=== PATIENT | female | born 2000 | race Caucasian/White ===

== ENCOUNTER 2021-04-19 10:03 | Emergency (ER) | payer OTHER, SELFPAY ==
[2021-04-19 10:14] VITALS: BP 139/93; PULSE 73; RESP 16; TEMP 37.3; O2SAT 99
--- NOTE | 2021-04-19 10:35 | ED.NAVMDI ---
HPI - Nausea/Vomiting/Diarrhea General Chief complaint: Nausea/Vomiting/Diarrhea Stated complaint: Stomach Pain Time Seen by Provider: 04/19/21 10:35 Source: patient, RN notes reviewed and old records reviewed Mode of arrival: ambulatory Limitations: no limitations History of Present Illness HPI Narrative: 21 year old female who presents to [facility] care with complaints of abdominal pain since yesterday morning. Patient states that pain has increased to her abdomen since last night with diarrhea starting. This morning she has also had nausea and vomiting Patient has tenderness on palpation to right lower quadrant rating pain 8/10 when palpated. Patient denies any known fevers, chills or sweats, denies any burning with urination, frequency of urination or any CVA tenderness. MD elicited complaint: nausea, vomiting, diarrhea and abdominal pain (generalized cramping) Related Data Home Medications Medication Instructions Recorded Confirmed norethindrone-e.estradiol-iron tablet 04/19/21 04/19/21 [09/24 (28)] Allergies Allergy/AdvReac Type Severity Reaction Status Date / Time Penicillins Allergy Unknown Verified 04/19/21 11:24 Review of Systems Review of Systems: CONSTITUTIONAL: Denies fever, chills, or sweats. EYES: Denies visual changes, redness, or discharge. ENT: Denies rhinorrhea, congestion, sore throat, or otalgia. CARDIOVASCULAR: Denies chest pain, palpitations, or edema. RESPIRATORY: Denies cough or dyspnea. GASTROINTESTINAL: Positive abdominal pain, nausea, vomiting, or diarrhea. GENITOURINARY: Denies dysuria or hematuria. SKIN: Denies rash or itching. MUSCULOSKELETAL: Denies back pain, joint pain, or myalgia. NEUROLOGIC: Denies headache, numbness, or weakness. PSYCHIATRIC: Denies anxiety or depression. All systems reviewed & are unremarkable except as noted in HPI and below PMFSH Past Medical History Medical History (Updated 04/20/21 @ 20:00 by Tegan Park NP) Acute right lower quadrant pain Appendicolith (~04/19/21) No pertinent past medical history Surgical History Surgical History H/O knee surgery LEFT 3-4 years ago ligament repair Family History Family History Grandparent Lung cancer Mother Diabetes mellitus Cervical cancer Sibling Diabetes mellitus Social History Social History Smoking status: Never smoker Alcohol intake: never Substance use: never Gender identity (if verbalized by the patient): Female Comments At time of signature, agree with nursing past medical, surgical, social and family history. There is no relevant family history pertinent to the presenting complaint Exam Narrative: GENERAL: Well-appearing, well-nourished, and in no acute distress. HEAD: Normocephalic, atraumatic. EYES: PERRLA and EOMI. ENT: Nares clear, no rhinorrhea or epistaxis. Mucous membranes moist. NECK: Supple.no lymphadenopathy CHEST: Clear to auscultation. No respiratory distress.SAO2 99% on room air HEART: Regular rate and rhythm. No murmur heard. Normal peripheral pulses. ABDOMEN: Soft,tender general lower abdomen with increase pain on palpation to right lower quadrant, nondistended, normal active bowel sounds.No CVA tenderness EXTREMITIES: Normal range of motion. No edema. SKIN: Warm, dry, no rash. NEURO: No focal deficits. Alert and oriented x3. Course Vital Signs Vital signs: Vital Signs Temperature 37.3 C 04/19/21 10:14 Pulse Rate 73 04/19/21 10:14 Respiratory Rate 16 04/19/21 10:14 Blood Pressure 139/93 H 04/19/21 10:14 Pulse Oximetry 99 04/19/21 10:14 Temperature 37.3 C 04/19/21 10:14 Pulse Rate 73 04/19/21 10:14 Respiratory Rate 16 04/19/21 10:14 Blood Pressure 139/93 H 04/19/21 10:14 Pulse Oximetry 99 04/19/21 10:14 Transfer Transfered to: [facility]
== END 2021-04-19 10:58 | disposition short-term general hospital (02) ==
PROVIDERS: Emergency Provider Registered Nurse
DX: R11.2 Nausea with vomiting, unspecified (principal); R19.7 Diarrhea, unspecified; R10.31 Right lower quadrant pain
CPT/HCPCS: 81003; 99212; G0463

== ENCOUNTER 2021-04-19 11:14 | Observation (INO) | payer OTHER, SELFPAY ==
--- NOTE | ~2021-04-19 | CT_ITS ---
EXAMINATION: CT abdomen pelvis w con DATE: 04/19/2021 15:52 INDICATION: Abdominal pain, nausea, vomiting and diarrhea. TECHNIQUE: Computed tomography (CT) of the abdomen and pelvis was performed with 100 mL Omnipaque-350 intravenous contrast. Automated exposure control and iterative reconstruction technique were employe d. The dose-length product was 1298.73 mGy-cm. COMPARISON: None FINDINGS: Lung bases are clear. Heart size is normal. No pericardial or pleural effusion. Liver, gallbladder, s pleen, pancreas, bilateral adrenal glands and kidneys are normal. Dilated fluid-filled appendix measu ring up to 11 mm in diameter distal to a couple calcified appendicoliths. This raises suspicion for a cute appendicitis although there is no significant surrounding inflammatory stranding to more specifi thierry suggest this. Bowels are otherwise unremarkable. Bladder, uterus and bilateral adnexa are unrem arkable. No free intraperitoneal gas or fluid. No pathologically enlarged abdominal or pelvic lymphad enopathy. IMPRESSION: 1. Dilated fluid-filled appendix distal to a couple appendicoliths but without appreciable surroundin g inflammatory stranding which is suspicious but indeterminate for early acute appendicitis. Dr. Carmen funez discussed these findings with Dr. Mckeon at 4:20 PM. Reviewed, dictated and finalized at location A. IMPRESSION: 1. Dilated fluid-filled appendix distal to a couple appendicoliths but without appreciable surrounding inflammatory stranding which is suspicious but indeterm inate for early acute appendicitis. Dr. Parker discussed these findings with Dr. Mckeon at 4:20 PM.
[2021-04-19 11:21] VITALS: BP 142/103; PULSE 74; RESP 17; TEMP 36.6; O2SAT 100
[2021-04-19 11:33] LABS: Basophils Percent Auto 0.3 % (0.2-1.2); Eosinophils Percent Auto 0.1 % (0-4.4); Hematocrit 42.9 % (37.0-47.0); Hemoglobin 14.6 g/dL (12.0-15.0); Immature Granulocyte Absolute 0.07 K/mm3 (0.00-0.031); Immature Granulocyte Percent A 0.5 % (0-0.5); Lymphocytes Absolute Auto 1.09 K/mm3 (0.9-3.2); Lymphocytes Percent Auto 7.9 % (18.3-44.2); Mean Corpuscular Hemoglobin 31.3 pg (26-34); Mean Corpuscular Volume 91.9 fl (80-100); Mean Platelet Volume 9.8 fl (7.4-10.4); Monocytes Absolute Auto 0.5 K/mm3 (0.1-0.6); Monocytes Percent Auto 3.9 % (2.6-8.5); Neutrophils Percent Auto 87.3 % (45.5-73.1); Platelet Count Result 264 k/mm3 (150-375); Red Blood Count 4.67 M/mm3 (4.2-5.4); Red Cell Distribution Width 12.3 % (11.5-14.5); White Blood Count 13.7 K/mm3 (4.5-10.0)
[2021-04-19 11:56] LABS: Add Urine Microscopic? YES; Appearance Urine Clear (Clear); Bilirubin Urine Negative (Negative); Blood Urine Negative (Negative); Color Urine Yellow (Yellow); Glucose Urine UA Negative (Negative); Ketones Urine 1+ mg/dL (Negative); Leukocyte Esterase Ur Trace LEU/UL (Negative); Mucus Urine Rare /lpf; Nitrate Urine Negative (Negative); Protein Urine Negative (Negative); RBC Urine 0-2 /hpf (0-2); Specific Grav Ur 1.024 (1.001-1.035); Squamous Epithelial Cell Urine Rare /hpf (Few); Urobilinogen Urine Negative mg/dL (<2.0); WBC Urine 0-3 /hpf
[2021-04-19 12:02] LABS: Alanine Aminotransferase 23 U/L (4-35); Albumin Level 4.6 g/dL (3.5-5.1); Alkaline Phosphatase 70 U/L (38-126); Anion Gap 5 mmol/L (8-16); Aspartate Amino Transferase 34 U/L (14-36); Bilirubin,Total 0.4 mg/dL (0.2-1.3); Blood Urea Nitrogen 9 mg/dL (7-17); Calcium 9.5 mg/dL (8.4-10.2); Carbon Dioxide 24 mmol/L (22-30); Chloride 105 mmol/L (98-107); Estimated CRCL calculation 141 ml/min; Estimated Glomerular Filt Rate > 60; Glucose 112 mg/dL (65-110); Lipase 69 U/L (23-300); Potassium 3.7 mmol/L (3.4-5.0); Sodium 134 mmol/L (137-145)
--- NOTE | 2021-04-19 15:50 | ED.ABDPAIN ---
HPI - Abdominal Pain General Chief Complaint: Abdominal Pain Stated Complaint: abdominal pain n/v/d Time Seen by Provider: 04/19/21 13:18 Source: patient Mode of arrival: ambulatory Limitations: no limitations History of Present Illness HPI narrative: Patient presents for evaluation of right-sided abdominal pain. Symptom onset yesterday. She had some relief in her symptoms last night but pain returned today. Pain is now constant, cramping, 6 out of 10 at rest, 8 out of 10 with movement. Experiencing nausea and dry heaving. She denies any fever, chills, urinary symptoms, vaginal bleeding or discharge. Compliant with oral contraception. Last period 2 to 3 weeks ago. No history of abdominal surgeries. No recent antibiotics. No recent travel. No new foods. No recent sick contacts. Received J&J COVID vaccine in the past. Typically she has a bowel movement once every 3 days. She has had multiple episodes of diarrhea since yesterday, without the presence of blood or mucous in the stool. She was seen in urgent care earlier today and was sent here for further evaluation. Related Data Home Medications Medication Instructions Recorded Confirmed norethindrone-e.estradiol-iron tablet 04/19/21 04/19/21 [09/24 (28)] Allergies Allergy/AdvReac Type Severity Reaction Status Date / Time Penicillins Allergy Unknown Verified 04/19/21 11:24 Review of Systems Review of Systems: CONSTITUTIONAL: Denies fever, chills, or sweats. EYES: Denies visual changes, redness, or discharge. ENT: Denies rhinorrhea, congestion, sore throat, or otalgia. CARDIOVASCULAR: Denies chest pain, palpitations, or edema. RESPIRATORY: Denies cough or dyspnea. GASTROINTESTINAL: Reports abdominal pain and nausea. Reports diarrhea. Denies vomiting. GENITOURINARY: Denies dysuria or hematuria. SKIN: Denies rash or itching. MUSCULOSKELETAL: Denies back pain, joint pain, or myalgia. NEUROLOGIC: Denies headache, numbness, dizziness, or weakness. PSYCHIATRIC: Denies anxiety or depression. [facility] Past Medical History Medical History No pertinent past medical history Surgical History Surgical History H/O knee surgery LEFT 3-4 years ago ligament repair Family History Family History Grandparent Lung cancer Mother Diabetes mellitus Cervical cancer Sibling Diabetes mellitus Social History Social History Smoking status: Never smoker Alcohol intake: never Substance use: never Gender identity (if verbalized by the patient): Female Exam Narrative: GENERAL: Well-appearing, well-nourished, and in no acute distress. HEAD: Normocephalic, atraumatic. EYES: PERRLA and EOMI. ENT: Nares clear, no rhinorrhea or epistaxis. Mucous membranes moist. Oropharynx without tonsillar hypertrophy exudate or other lesions. Bilateral TMs pearly banegas nonbulging NECK: Supple. No adenopathy or masses. No carotid bruits or JVD CHEST: Clear to auscultation. No respiratory distress. No wheezes rales or rhonchi HEART: Regular rate and rhythm. No murmur heard. Normal peripheral pulses. ABDOMEN: Soft, diffuse tenderness, most prominent in the left lower quadrant, suprapubic region, right lower quadrant and right upper quadrant. There is no rebound present EXTREMITIES: Normal range of motion. No edema. SKIN: Warm, dry, no rash. NEURO: No focal deficits. Alert and oriented x3. PSYCH: Normal mood and affect. Course Course Emergency Course: This is a 21-year-old female who presented with complaints of abdominal pain. CT abdomen pelvis showed dilated fluid-filled appendix distal to a couple appendicoliths without appreciable surrounding inflammation. Mild leukocytosis. Questionable early appendicitis. I discussed all releva
[2021-04-19] MEDS: SODIUM CHLORIDE 0.9% IV 1,000 ML 999 ML IV CONT (16:02)
[2021-04-19] MEDS: ONDANSETRON INJ 4 MG/2 ML VIAL IV PUSH ×2 (16:02→20:42)
[2021-04-19] MEDS: MORPHINE SULFATE (*CRX) 2 MG/ML INJ IV PUSH ×2 (16:03→20:42)
[2021-04-19 16:04] VITALS: BP 138/88; PULSE 80; RESP 20; O2SAT 99
[2021-04-19 16:59] LABS: Lactic Acid Reflex 1.3 mmol/L (0.7-2.1)
--- NOTE | 2021-04-19 18:14 | PM.IMHP ---
H&P: HPI History of Present Illness Date/Time: 04/19/21 18:14 Chief Complaint: Abdominal pain Narrative: Patient is a 21 y/o W female who presents for evaluation of right-sided abdominal pain. Symptom onset yesterday. She had some relief in her symptoms last night but pain returned today. patient ate normally yesterday eating some chicken care its another vegetable that she cooked at 6:00 p.m. last evening. She states that she then went to bed feeling fine but when she awoke this morning she continued to have her had recurrence of the mid abdominal pain. She has any new anything since she has drink some liquids and she has had several loose stools 1 in the evening Tuesday to today. No blood in the stool. Pain today is constant, cramping, 6 out of 10 at rest. Experiencing nausea and dry heaving Earlier today. She denies any fever, chills, urinary symptoms, vaginal bleeding or discharge, however, she admits she could find her thermometer and never took her temperature at home. She was afebrile here at the ED. Compliant with oral contraception. Last period 2 to 3 weeks ago. No history of abdominal surgeries. No recent antibiotics. No recent travel. No new foods. No recent sick contacts. Received J&J COVID vaccine in the past. Typically she has a bowel movement once every 3 days. She has had multiple episodes of diarrhea since yesterday, without the presence of blood or mucous in the stool. She was seen in urgent care earlier today and was sent to the [facility] for further evaluation. workup here at the [facility] ED reveals afebrile white count slightly elevated at 13,000 thousand with the rest the labs being fairly normal. Urinalysis was normal. CT scan of the abdomen pelvis showed equal signs of possible early appendicitis with 2 appendicoliths noted in the appendix without surrounding inflammation the rudolph-appendiceal fat. (See report ). I was called noon to suggest further care. Review of Systems Constitutional: Constitutional: Reports as per HPI and Denies headache(s) Eyes: Eyes: Denies loss of vision and Denies eye pain ENT: Reports Normal hearing present, Denies change in voice, Denies dizziness and Denies headache(s) Cardiovascular: Cardiovascular: Denies chest pain and Denies dyspnea Respiratory: Respiratory: Denies dyspnea and Denies wheezing Gastrointestinal: Gastrointestinal: Reports abdominal pain Musculoskeletal: Musculoskeletal: Denies back pain and Denies arthralgias Neurologic: Reports Normal hearing present, Denies dizziness, Denies headache(s), Denies loss of vision and Denies memory loss Psychiatric: Psychiatric: Denies memory loss and Denies panic attacks Endocrine: Endocrine: Reports no additional endocrine complaints Hematologic/Lymphatic: Hematologic/Lymphatic: Reports no additional hematologic/lymphatic complaints Allergic/Immunologic: Allergic/Immunologic: Denies wheezing PMFSH Past Medical History Medical History No pertinent past medical history Surgical History Surgical History H/O knee surgery LEFT 3-4 years ago ligament repair Family History Family History Grandparent Lung cancer Mother Diabetes mellitus Cervical cancer Sibling Diabetes mellitus Social History Social History Smoking status: Never smoker Alcohol intake: never Substance use: never Gender identity (if verbalized by the patient): Female Meds Home Medications and Allergies Home Medications Medication Instructions Recorded Confirmed Type norethindrone-e.estradiol-iron tablet 04/19/21 04/19/21 History [09/24 ()] Allergies Allergy/AdvReac Type Severity Reaction Status Date / Time Penicillins Allergy Unknown Verified 04/19/21 11:24
[2021-04-19 18:32] VITALS: BP 147/84; PULSE 87; RESP 20; O2SAT 100
--- NOTE | 2021-04-19 19:14 | PC.NURSE ---
Report received from NICHELLE Colby. Assumed care of patient at this time.
--- NOTE | 2021-04-19 19:16 | PC.NURSE ---
in room to see patient.
[2021-04-19 20:34] VITALS: BP 153/89; PULSE 96; RESP 18; TEMP 38.2; O2SAT 100
[2021-04-19] MEDS: SODIUM CHLORIDE 0.9% IV 1,000 ML 100 ML IV CONT (20:42)
--- NOTE | 2021-04-19 20:47 | PC.NURSE ---
ERP notified of patient's fever, informed to contact for orders.
--- NOTE | 2021-04-19 21:30 | PC.NURSE ---
Spoke with in regards to patient. He stated to give the tylenol for the fever. He stated to keep him informed of patient's condition or any changes.
[2021-04-19] MEDS: ACETAMINOPHEN 325 MG TABLET 650 MG PO (21:39)
[2021-04-19 22:02] VITALS: TEMP 37.9
[2021-04-19 23:50] VITALS: BP 139/91; PULSE 104; RESP 18; TEMP 37.3; O2SAT 99
[2021-04-20] VITALS (14 sets, daily range): BP systolic 99–144; BP diastolic 56–92; PULSE 88–114; RESP 12–20; TEMP 36.8–38.6; O2SAT 98–100
[2021-04-20] MEDS: MORPHINE SULFATE (*CRX) 2 MG/ML INJ IV PUSH ×3 (03:02→15:01)
[2021-04-20 06:17] LABS: Basophils Percent Auto 0.2 % (0.2-1.2); Eosinophils Percent Auto 0.1 % (0-4.4); Hemoglobin 13.7 g/dL (12.0-15.0); Immature Granulocyte Absolute 0.07 K/mm3 (0.00-0.031); Immature Granulocyte Percent A 0.4 % (0-0.5); Lymphocytes Absolute Auto 0.88 K/mm3 (0.9-3.2); Lymphocytes Percent Auto 5.3 % (18.3-44.2); Mean Corpuscular HGB Conc 33.4 g/dl (32-36); Mean Corpuscular Hemoglobin 31.2 pg (26-34); Mean Corpuscular Volume 93.4 fl (80-100); Mean Platelet Volume 9.8 fl (7.4-10.4); Monocytes Absolute Auto 0.7 K/mm3 (0.1-0.6); Neutrophils Absolute Auto 14.9 K/mm3 (1.3-6.7); Platelet Count Result 215 k/mm3 (150-375); Red Blood Count 4.39 M/mm3 (4.2-5.4); Red Cell Distribution Width 12.1 % (11.5-14.5); White Blood Count 16.6 K/mm3 (4.5-10.0)
[2021-04-20 06:38] LABS: Anion Gap 2 mmol/L (8-16); Blood Urea Nitrogen 6 mg/dL (7-17); Calcium 8.9 mg/dL (8.4-10.2); Carbon Dioxide 27 mmol/L (22-30); Chloride 103 mmol/L (98-107); Estimated CRCL calculation 126 ml/min; Estimated Glomerular Filt Rate > 60; Glucose 116 mg/dL (65-110); Magnesium 1.6 mg/dL (1.6-2.3); Potassium 4.3 mmol/L (3.4-5.0); Sodium 132 mmol/L (137-145)
[2021-04-20] MEDS: SODIUM CHLORIDE 0.9% IV 1,000 ML 100 ML IV CONT (06:52)
[2021-04-20] MEDS: ACETAMINOPHEN 325 MG TABLET 650 MG PO (07:06)
[2021-04-20] MEDS: ENOXAPARIN 40 MG/0.4 ML SYRINGE SUB-Q (10:25)
--- NOTE | 2021-04-20 11:44 | WPDHPUPDATE1 ---
History and Physical Update Update Date/Time: 04/20/21 11:44 History and Physical has been reviewed, including an updated exam of the patient. There are changes in the patient's condition. The pt continues to have RLQ pain overnight and had a fever. She also had the WBC go up to 16,000. Risks, benefits, and alternatives of a laparoscopic appendectomy, possible open appendectomy have been discussed and questions answered. Patient agrees to proceed with procedure.
[2021-04-20] MEDS: LACTATED RINGERS 1,000 ML 30 ML IV CONT ×2 (12:30→17:35)
--- NOTE | 2021-04-20 14:03 | SUR.PREOP ---
1340- PT STATED ABD PAIN 03/14. CALLED DR. BROWN AND HE STATED TO GIVE MORPHINE 2 MG IVP EVERY 5 MINS NEEDED. MAX DOSE 10 MG. 1346- MORPHINE 2 MG IVP GIVEN 1355- PT STATED PAIN TOLERABLE AT THIS TIME, RESTING IN STRETCHER
--- NOTE | 2021-04-20 15:25 | WPDANESEPPF ---
Anes - Initial Pre Proc Eval Procedure: Operation Date: 04/20/21 13:00 Proposed Procedures p Laparoscopic Appendectomy,Possible Open - Og Robles MD Date/Time: 04/20/21 15:25 Surgeon: Og Robles MD Pre Op Diagnosis: abdominal pain Patient Data Age: 21 Gender: F Height: 1.83 m Weight: 125 kg Last Vital Signs Temp 36.9 C 04/20/21 12:23 Pulse 94 04/20/21 12:23 Resp 12 04/20/21 11:08 BP 140/82 04/20/21 12:23 Pulse Ox 99 04/20/21 12:23 Allergies Allergy/AdvReac Type Severity Reaction Status Date / Time Penicillins Allergy Unknown Verified 04/19/21 11:24 Home Medications Medication Instructions Recorded Confirmed Type norethindrone-e.estradiol-iron tablet 04/19/21 04/19/21 History [09/24 (28)] Laboratory Tests 04/19/21 04/20/21 04/20/21 16:38 06:09 06:09 WBC 16.6 K/mm3 H K/mm3 (4.5-10.0) RBC 4.39 M/mm3 M/mm3 (4.2-5.4) Hgb 13.7 g/dL g/dL (12.0-15.0) Hct 41.0 % % (37.0-47.0) MCV 93.4 fl fl (80-100) MCH 31.2 pg pg (26-34) MCHC 33.4 g/dl g/dl (32-36) RDW 12.1 % % (11.5-14.5) Plt Count 215 k/mm3 k/mm3 (150-375) MPV 9.8 fl fl (7.4-10.4) Immature Gran % (Auto) 0.4 % % (0-0.5) Neut % (Auto) 90.0 % H % (45.5-73.1) Lymph % (Auto) 5.3 % L % (18.3-44.2) [place] % (Auto) 4.0 % % (2.6-8.5) Eos % (Auto) 0.1 % % (0-4.4) Baso % (Auto) 0.2 % % (0.2-1.2) Lymph # (Auto) 0.88 K/mm3 L K/mm3 (0.9-3.2) [place] # (Auto) 0.7 K/mm3 H K/mm3 (0.1-0.6) Eos # (Auto) 0.0 K/mm3 K/mm3 (0-0.3) Baso # (Auto) 0.0 K/mm3 K/mm3 (0.0-0.1) Abs Immat Gran (auto) 0.07 K/mm3 H K/mm3 (0.00-0.031) Absolute Neuts (auto) 14.9 K/mm3 H K/mm3 (1.3-6.7) Absolute Nucleated RBC 0.0 K/mm3 K/mm3 (0.0-0.012) Nucleated RBC % 0.0 % % (0.0-0.2) Sodium 132 mmol/L L mmol/L (137-145) Potassium 4.3 mmol/L mmol/L (3.4-5.0) Chloride 103 mmol/L mmol/L (98-107) Carbon Dioxide 27 mmol/L mmol/L (22-30) Anion Gap 2 mmol/L L mmol/L (8-16) BUN 6 mg/dL L mg/dL (7-17) Creatinine 0.90 mg/dL mg/dL (0.7-1.0) Estim Creat Clear Calc 126 ml/min ml/min Estimated GFR > 60 (59 - ) Glucose 116 mg/dL H mg/dL (65-110) Lactic Acid 1.3 mmol/L mmol/L (0.7-2.1) Calcium 8.9 mg/dL mg/dL (8.4-10.2) Magnesium 1.6 mg/dL mg/dL (1.6-2.3) Patient hx anesthesia problems: none Family hx anesthesia problems: none [facility] Past Medical History Medical History (Updated 04/20/21 @ 15:26 by James Alanis MD) Acute right lower quadrant pain Appendicolith (~04/19/21) No pertinent past medical history Surgical History Surgical History H/O knee surgery LEFT 3-4 years ago ligament repair Family History Family History Grandparent Lung cancer Mother Diabetes mellitus Cervical cancer Sibling Diabetes mellitus Social History Social History Smoking status: Never smoker Alcohol intake: never Substance use: never Gender identity (if verbalized by the patient): Female Anes - Eval Final PreProcedure Day of Procedure 04/20/21 15:25 Patient weight: obese Heart: regular rate and rhythm Lungs: clear to auscultation and normal air movement Airway: Mallampati scale class II Neurological: alert and oriented Last oral intake: >/= 8 hours ASA classification: II Emergent: no Anesthetic plan: proceed Anesthesia type and monitoring: general ETT Informed Consent: The patient's anesthetic plan and its attendant risks and benefits were discussed wi
[2021-04-20] MEDS: SCOPOLAMINE 1.5 MG PATCH TRANSDERM (15:42)
[2021-04-20] MEDS: BUPIVACAINE/EPINEPHRINE 0.5% 50 ML VIAL (17:22)
--- NOTE | 2021-04-20 17:36 | W.PM.PROC2 ---
Procedure Note - Detailed Date of Procedure 04/20/21 Pre-op Diagnosis 1. abdominal pain 2. Acute uncomplicated appendicitis Post-op Diagnosis same Procedure Performed laparoscopic appendectomy Surgeon Og Robles MD [employer] Junaid STEWARD. OR [employer] Rep[employer] Technician Anesthesia general Indications Patient presented last evening to the emergency room and CT scan showed equivocal appendicitis. She was observed overnight because she was in significant discomfort and repeat white count showed elevation to 16,000. The patient can not was continuing to have right lower quadrant right mid abdominal pain. Therefore, it was felt that most likely she had continuing appendicitis. She was started on antibiotics this morning and scheduled for surgery is afternoon with the supposition that she does have acute appendicitis. On CT there was no signs of perforation. Findings The appendix was curled and adhesed with inflammatory adhesions between the distal small bowel and the right lateral abdominal wall right at the pelvic brim. There was no sign of perforation. Description of Procedure The patient was seen again in the Holding Room. The risks, benefits, complications, treatment options, and expected outcomes were discussed with the patient and/or family. The possibilities of reaction to medication, pulmonary aspiration, perforation of viscus, bleeding, recurrent infection, finding a normal appendix, the need for additional procedures, failure to diagnose a condition, and creating a complication requiring transfusion or operation were discussed. There was concurrence with the proposed plan and informed consent was obtained. The site of surgery was properly noted/marked. The patient was taken to Operating Room, and a time out was preformed which identified this as the proper patient, and the procedure verified as laparoscopic appendectomy, possible open. The patient was placed in the supine position and general anesthesia was induced, along with placement of orogastric tube, SCD hose, and a Mcdonnell catheter. The abdomen was prepped and draped in a sterile fashion. A 5 mm umbilical incision was made and the peritoneal cavity was accessed using the Veress needle technique. Once the abdomen was insufflated to 14 mmHg pressure a 5 mm XL trocar over the 0? 5 mm scope was carefully twisted into the abdomen via the umbilicus. Once we had the 5 mm scope through the sleeve the trocar I could not see anything inside the abdomen. Because of this I did not feel confident that we would be able to get into the abdomen with this technique. Therefore we converted to the Hickman technique. Because of the above the Hickman cannula technique was utilized. To do this I made a transverse incision in the umbilical area, extending the above small transverse incision where we had tried the Veress needle technique, and carried this down to the midline fascia. Under direct vision the midline fascia was incised and the peritoneum entered under direct vision after placing 2 sutures of 0 Vicryl in the fascia on either side of midline. The Hickman cannula was then slid into place into the peritoneum under direct vision with some difficulty. The pneumoperitoneum was then established to steady pressure of 14 mm Hg. A 12 mm laparoscopic port was placed through a transverse suprapubic incision. An additional 5 mm cannula was then placed in the left upper quadrant of the abdomen at a level half way between the umbilicus and the left costal margin under direct vision. A careful evaluation of the entire abdomen was carried out. The right half of the uterus in the right ovary appeared normal. Because of her body habitus I was unable to see the left ovary. The patient was placed in Trendelenburg and left lateral decubitus position. The small intestines were retracted in the cephalad and left lateral direction away from the pelvis and right lower quadrant. The patient was found to have an enlarged and inflamed appendix
--- NOTE | 2021-05-14 15:29 | PM.DS ---
DS: Admitting Diagnosis Discharge Date 04/20/21 Admitting Diagnosis acute uncomplicated appendicitis DS: Discharge Diagnosis Discharge Diagnosis (1) Acute appendicitis, uncomplicated: Onset Date: ~04/18/21 Code(s): K35.80 - Unspecified acute appendicitis Status: Acute Assessment and Plan: The patient presented to the emergency room. She was worked up and CT showed suggested acute appendicitis. Patient appropriate history and physical exam for same. She subsequently underwent the following day a laparoscopic appendectomy with findings of a non perforated appendicitis. Please see the operative note for further details. Patient had unremarkable recovery and was discharged the evening of her surgery. (2) Obesity (BMI 35.0-39.9 without comorbidity): Onset Date: ~04/2021 Code(s): E66.9 - Obesity, unspecified Status: Acute Assessment and Plan: encouraged patient to lose weight DS: Summary Hospital Course Reason for hospitalization: acute uncomplicated appendicitis Hospital Course: The patient presented to the emergency room. She was worked up and CT showed suggested acute appendicitis. Patient appropriate history and physical exam for same. She subsequently underwent the following day a laparoscopic appendectomy with findings of a non perforated appendicitis. Please see the operative note for further details. The patient had unremarkable recovery and was discharged the evening of her surgery Status at Discharge Cognitive/behavioral status at discharge: normal Functional status at discharge: independent ambulation Overall status at discharge: patient is not back to baseline ( still slowed by her incisions.) Time Spent with Patient Time attestation: Total time spent providing and/or coordinating discharge services: Time spent: Less than 30 minutes Specific discharge activities: See instructions for patient under discharge plan Exam Const: General: cooperative, no acute distress, alert and awake Orientation/consciousness: patient oriented x3 HENMT: Mouth: Yes moist mucous membranes Neck: Neck: normal visual inspection Chest: Chest palpation & inspection: normal inspection of the chest Resp: Effort & Inspection: normal respiratory effort Auscultation: clear to auscultation bilaterally Cardio: Jugular venous distension: no JVD Rate: regular rate Rhythm: regular rhythm GI: Inspection: incision ( clean and dry with surgical glue in place) and obesity Auscultation: normal bowel sounds Rectal Exam: deferred Neuro: General: patient oriented x3 and moves all extremities Speech: normal speech Extrem: General: normal exam except as noted Psych: Mental Status: mental status grossly normal Speech and movement: Normal speech and movement present Affect: normal affect Thought content: Yes Normal thought content present DS: Data Data Completed and Pending Completed studies during hospitalization: Pending at discharge 04/20/21 16:52 Surgical [PTH] Routine Discharge Plan Discharge Attending physician on discharge: Og Robles Consulting providers: Elvis Parker Discharging Clinician: Og Robles Anticipated Discharge Date/Time: 04/20/21 19:00 Patient Disposition: Home, Self-Care Activity: may shower and other - see discharge instructions Diet: other - see discharge instructions Wound Care Instructions: incision open to air and other - see discharge instructions Discharge Instructions: DISCHARGE INSTRUCTION SHEET FOR LAPAROSCOPIC APPENDIX SURGERIES DR. ROBLES PATIENT TO TAKE HOME 1. May shower the day after surgery over incisions. Do not submerge in water x 2weeks. 2. Call office for: Wound increasingly painful or bleeding Vomiting Fever of greater than 101 degrees 3. Expect some blood on dressing and old blood on skin. 4. If no bowel movement for two days, take 1 oz. (30 ml) Milk of M
== END 2021-04-20 19:50 | disposition home or self-care (01) ==
LOC: ANHED 17:41 → ANH3MEDSUR 04-20 02:14
PROVIDERS: Nurse Practitioner; Admitting Provider Surgery; Emergency Provider Emergency Medicine; Visit Provider Surgery
PROC: 0DTJ4ZZ Resection of Appendix, Percutaneous Endoscopic Approach (ICD-10-PCS; CPT 44970; principal; 2021-04-20 13:00)
DX: K35.30 Acute appendicitis with localized peritonitis, without perforation or gangrene (principal); R11.2 Nausea with vomiting, unspecified; R19.7 Diarrhea, unspecified; E66.9 Obesity, unspecified; Z68.37 Body mass index [BMI] 37.0-37.9, adult
CPT/HCPCS: 44970; 36415; 74177; 80048; 80053; 81001; 81003; 81025; 83605; 83690; 83735; 85025; 87040; 88304; 96361; 96374; 96375; 99285; A9270; G0378; J0330; J1100; J1650; J2250; J2270; J2405; J2543; J2704; J2710; J3010; J7030; J7120; Q9967

== ENCOUNTER 2022-05-08 11:28 | Emergency (ER) | payer OTHER, SELFPAY ==
[2022-05-08 11:45] VITALS: BP 133/86; PULSE 91; RESP 18; TEMP 36.6; O2SAT 100
--- NOTE | 2022-05-08 12:31 | ED.GENADULT ---
HPI - General Adult General Chief complaint: Urogenital-Female Stated complaint: uti complaint History of Present Illness HPI narrative: Patient is a 22-year-old female who [facility] an evaluation of urinary symptoms that began 5 days ago. Additionally, she reports dysuria, bilateral intermittent flank pain, low abdominal pressure, and strong urine odor. She has no concerns for STDs. She reports she has not been sexually active in approximately 3 months. OTC UTI Azo from Shots improves symptoms. Urinating worsen symptoms. Related Data Home Medications Medication Instructions Recorded Confirmed norethindrone 1 mg-ethinyl 1 tablet DAILY 04/19/21 05/07/21 estradiol 20 mcg (21)-iron 75 mg (7) tablet (09/24 (28)) Allergies Allergy/AdvReac Type Severity Reaction Status Date / Time Penicillins Allergy Unknown Verified 05/08/22 12:00 Review of Systems Review of Systems: Reports a history of UTIs. Today symptoms are similar to previous UTIs. Denies history of urinary tract infections and renal calculi. Pertinent negatives: fever, chills, sweats, change in appetite, poor p.o. intake, malaise, recent weight loss, myalgias, lymphadenopathy, headache, dizziness, STD exposure, painful intercourse, abdominal pain, constipation, nausea, vomiting, diarrhea, abdominal cramping, hematuria, urinary urgency, urinary incontinence, vaginal bleeding/discharge, , shortness of breath, chest pain, and heart palpitations/murmurs. [facility] Past Medical History Medical History Acute right lower quadrant pain Appendicolith (~04/19/21) No pertinent past medical history Obesity (BMI 35.0-39.9 without comorbidity) (~04/2021) Surgical History Surgical History H/O knee surgery LEFT 3-4 years ago ligament repair History of laparoscopic appendectomy Family History Family History Grandparent Lung cancer Mother Diabetes mellitus Cervical cancer Sibling Diabetes mellitus Social History Social History Smoking status: Never smoker Alcohol intake: never Substance use: never Gender identity (if verbalized by the patient): Female Comments I have reviewed and agree with the patient's past medical, surgical, social, and family hx as documented by the RN. There is no relevant family history pertinent to the presenting complaint. Exam Narrative: GENERAL: Well-appearing, well-nourished, and in no acute distress. HEAD: Normocephalic, atraumatic. NECK: Supple. No lymphadenopathy or nuchal rigidity. CHEST: Lung sounds are clear to auscultation in bilateral lung capellan. No respiratory distress. HEART: Regular rate and rhythm. No murmur, gallop, or rub heard. ABDOMEN: Soft, non-tender, non-distended, normal active bowel sounds in all quadrants. No guarding. No rebound tenderness. No pulsatile or palpable abdominal mass(es). No CVAT : Bladder non-distended, non-tender EXTREMITIES: Normal range of motion. No edema. SKIN: Warm, dry, no rash. No skin color changes. Excellent turgor. NEURO: No focal deficits. Alert and oriented x3. SPECIAL OBSERVATIONS: Smiling. Laughing. No evidence of discomfort. Course Course Level of Care: Express Care Visit Vital Signs Vital signs: Vital Signs Temperature 97.9 F 05/08/22 11:45 Pulse Rate 91 05/08/22 11:45 Respiratory Rate 18 05/08/22 11:45 Blood Pressure 133/86 05/08/22 11:45 Pulse Oximetry 100 05/08/22 11:45 Oxygen Delivery Room Air 05/08/22 11:45 Temperature 97.9 F 05/08/22 11:45 Pulse Rate 91 05/08/22 11:45 Respiratory Rate 18 05/08/22 11:45 Blood Pressure 133/86 05/08/22 11:45 Pulse Oximetry 100 05/08/22 11:45 Oxygen Delivery Room Air 05/08/22 11:45
== END 2022-05-08 12:44 | disposition home or self-care (01) ==
PROVIDERS: Emergency Provider Nurse Practitioner Family
DX: N30.01 Acute cystitis with hematuria (principal); E66.9 Obesity, unspecified; Z68.38 Body mass index [BMI] 38.0-38.9, adult
CPT/HCPCS: 81003; 99213; G0463

== ENCOUNTER 2022-07-28 14:20 | Emergency (ER) | payer OTHER, SELFPAY ==
[2022-07-28 14:35] VITALS: BP 123/75; PULSE 85; RESP 20; TEMP 37.2; O2SAT 100
--- NOTE | 2022-07-28 14:41 | ED.GENADULT ---
HPI - General Adult General Chief complaint: Unspecified Stated complaint: refill Time Seen by Provider: 07/28/22 15:00 Source: patient Mode of arrival: ambulatory Limitations: no limitations History of Present Illness HPI narrative: 22 year old female presents to concern for medication refill. Reports she has 2 days left in her control. 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 She reports she has been on this control for over 2 years. She reports she has periods every 3 months, she denies any change in her periods or chance of . complaint: Medication refill Related Data Home Medications Medication Instructions Recorded Confirmed norethindrone 1 mg-ethinyl 1 tablet DAILY 04/19/21 07/28/22 estradiol 20 mcg (21)-iron 75 mg (7) tablet (09/24 (28)) Allergies Allergy/AdvReac Type Severity Reaction Status Date / Time Penicillins Allergy Unknown Verified 07/28/22 14:33 Review of Systems Review of Systems: CONSTITUTIONAL: Denies malaise, chills, sweats, or fever. GASTROINTESTINAL: Denies abdominal pain, nausea, vomiting, diarrhea, bloody, or mucous stools. GENITOURINARY: Denies dysuria or hematuria. NEUROLOGIC: Denies headache. All systems reviewed & are unremarkable except as noted in HPI and below [facility] Past Medical History Medical History Acute right lower quadrant pain Appendicolith (~04/19/21) No pertinent past medical history Obesity (BMI 35.0-39.9 without comorbidity) (~04/2021) Surgical History Surgical History H/O knee surgery LEFT 3-4 years ago ligament repair History of laparoscopic appendectomy Family History Family History Grandparent Lung cancer Mother Diabetes mellitus Cervical cancer Sibling Diabetes mellitus Social History Social History Smoking status: Never smoker Alcohol intake: never Substance use: never Gender identity (if verbalized by the patient): Female Comments At time of signature, agree with nursing past medical, surgical, social and family history. There is no relevant family history pertinent to the presenting complaint Exam Narrative: GENERAL: Well-appearing, well-nourished, and in no acute distress. HEAD: Normocephalic. EYES: PERRLA, conjunctivae clear. NECK: Supple. No lymphadenopathy CHEST: Clear to auscultation. No respiratory distress. HEART: Regular rate and rhythm. SKIN: Warm, dry, no rash. NEURO: Alert and oriented x3. PSYCH: Normal mood and affect Course Course Emergency Course: Patient is aware of diagnosis, understands and agrees to treatment plan. Anticipatory guidance given. Patient agrees to follow-up as directed and is aware of reasons to seek care at the emergency department. Portions of this record may have been created with voice recognition software Level of Care: Express Care Visit Vital Signs Vital signs: Vital Signs Temperature 99 F 07/28/22 14:35 Pulse Rate 85 07/28/22 14:35 Respiratory Rate 20 07/28/22 14:35 Blood Pressure 123/75 07/28/22 14:35 Pulse Oximetry 100 07/28/22 14:35 Oxygen Delivery Room Air 07/28/22 14:35 Temperature 99 F 07/28/22 14:35 Pulse Rate 85 07/28/22 14:35 Respiratory Rate 20 07/28/22 14:35 Blood Pressure 123/75 07/28/22 14:35 Pulse Oximetry 100 07/28/22 14:35 Oxygen Delivery Room Air 07/28/22 14:35 Reviewed. Medical Decision Making MDM Narrative Medical decision making narrative: Exam findings show no acute concerns or changes; patient is non-toxic appearing and is in no distress. Patient is appropriate for outpatient treatment and follow-up. Vital Signs Vital Signs: Vital Signs Temperature 99 F 07/28/22 14:35 Pulse R
== END 2022-07-28 14:52 | disposition home or self-care (01) ==
PROVIDERS: Emergency Provider Nurse Practitioner
DX: Z30.41 Encounter for surveillance of contraceptive pills (principal); E66.9 Obesity, unspecified; Z68.39 Body mass index [BMI] 39.0-39.9, adult
CPT/HCPCS: 99211; G0463